=== PATIENT | male | born 1980 | race African-American/Black ===

== ENCOUNTER 2017-02-05 03:42 | Inpatient (IN) | payer OTHER ==
[~2017-02-05] VITALS: Ht 190.5 cm; Wt 113.9 kg
[2017-02-05] VITALS (11 sets, daily range): BP systolic 121–212; BP diastolic 67–132
--- NOTE | ~2017-02-05 | EKG ---
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 : 1980 Requested By: Titi Marques Order Number: [id number] MD: Mayur Conte Measurements Intervals Maryneal Rate: 89 P: 38 AL: 165 QRS: -20 QRSD: 87 T: 59 QT: 367 QTc: 447 Interpretive Statements Sinus rhythm Left atrial enlargement Left ventricular hypertrophy Compared to ECG 05/12/2009 23:43:40 Nonspecific T wave abnormality now present Electronically Signed On 02-06-2017 9:46:34 [employer]UCK LE[employer]ING [employer]NAGER by Mayur Conte [email or web address] <ELECTRONICALLY SIGNED> By: Mayur Conte MD, [facility] 02/06/17 0946 06 1 Mayur Conte MD, [facility] /EPI
--- NOTE | ~2017-02-05 | O ---
[facility] [place] [address] OPERATIVE REPORT Name: KEITH SEGUNDO Room #: 439-P [facility] IN ..#: [id number] Admission: 02/05/17 Attend Phys: Shaun Downey DO Discharge: 02/08/17 Date of : 82 Report #: [id number] THIS REPORT FOR: //name// CC: Shaun MIR DATE OF SERVICE: 02/08/2017 PROCEDURE: Diagnostic bronchoscopy. CLINICAL HISTORY: A 37-year-old -Colombian male with ashley hemoptysis. 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 POSTOPERATIVE DIAGNOSES: 1. Moderate mucosal erythema involving the left upper lobe, right lower lobe without obvious bleeding. 2. Normal right main stem bronchus, right upper lobe, right middle lobe, right lower lobe and the right upper lobe. DESCRIPTION OF PROCEDURE: Following obtained consent and risks and benefits have been explained to the patient, which include infection, bleeding, pneumothorax, the procedure was performed. The patient was given total of 4 mg of Versed along with fentanyl 50 mcg IV. He was also given aerosolized lidocaine at 4%, 2% and 1% to the upper airways. Through the left nare, a flexible fiberoptic bronchoscope was then introduced without difficulty. The epiglottis was normal. Vocal cords were normal. Trachea was normal. Mally was normal. Right main stem bronchus, right upper lobe, right middle lobe and right lower lobe was unremarkable. Left main stem bronchus was grossly unremarkable other than mild distal erythema. At the left upper lobe and left lower lobe, there appears to be moderate edema and erythema. No active bleeding was noted. The bleeding did occur following bronchoscopic trauma when the patient started to cough. The procedure was then aborted. Otherwise, the patient tolerated the procedure well other than his blood pressure, which was up to about 100, which was elevated at around 160/100. The patient did not receive his p.o. antihypertensive medications. Blood loss was approximately 10-20 mL. Otherwise, vital signs and saturation were within normal range. No bronchoscopic specimen was sent for diagnostic testing. [address] [address] OPERATIVE REPORT Name: KEITH SEGUNDO Room #: 439-P [facility] IN ..#: [id number] Admission: 02/05/17 Attend Phys: Shaun Downey DO Discharge: 02/08/17 Date of : 82 Report #: [id number] RECOMMENDATIONS: In the future, if the patient needs another diagnostic bronchoscopy, absolute control of the cough or general anesthesia may be a better option in avoiding bronchoscopic trauma. <ELECTRONICALLY SIGNED> By: Dewayne Gonzalez MD 02/09/17 1613 1716 1755 Dewayne Gonzalez MD /nt
--- NOTE | ~2017-02-05 | HC ---
[facility] [place] [address] CONSULTATION Name: KEITH SEGUNOD Room #: 439-P [facility] IN ..#: [id number] Admission: 02/05/17 Attend Phys: Shaun Downey DO Discharge: Date of : 82 Report #: [id number] THIS REPORT FOR: //name// CC: Shaun DIANA PCP REFERRING PHYSICIAN: Dr. Shaun Downey. REASON FOR REFERRAL: Hemoptysis. HISTORY OF PRESENT ILLNESS: The patient is a 37-year-old -[place] male who presents to the emergency room with hemoptysis. A pulmonary consultation was requested. The patient has an extensive pulmonary history. In 2009, he was diagnosed with histoplasmosis involving his left lower lung field. He developed subsequent complications including granulomatous disease and hemoptysis. He then underwent coil embolization on 2 occasions to control bleeding. He was seen at [facility]. He was also seen at [facility] in [place], [place] in 2010, who had confirmed that he likely had histoplasmosis. He was also treated with intravenous itraconazole around 2010. He does not recall for how long, but he remembers being on prolonged course. He was doing fairly well until about 5 years ago when he developed spontaneous hemoptysis. At that time, his hemoptysis was mild. It resolved spontaneously. He was doing fairly well until last evening he had a sudden onset of cough along with moderate hemoptysis. For that reason, he presented to the emergency room. Recently, he has had complaints of chills. Denies any recent febrile illness. Denies any nausea, vomiting, diarrhea. The patient does smoke about a pack a day for most of his life. Denies any drug use. 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 The car was parked in an apartment lot and had bird droppings. He believes that that was the source for his histoplasmosis. PAST MEDICAL HISTORY: Otherwise, unremarkable other than mentioned above. PAST SURGICAL HISTORY: Negative other than coil embolization times 2 around 2009 and 2010. ALLERGIES: None. HOME MEDICATIONS: None. [facility] [address] [place] [address] CONSULTATION Name: RATNAKEITH Roxanne Room #: 439-P [facility] IN ..#: [id number] Admission: 02/05/17 Attend Phys: Shaun Downey DO Discharge: Date of : 82 Report #: [id number] FAMILY HISTORY: Father , cause unknown. Mother alive. SOCIAL HISTORY: He is single, has three children. He smokes about a pack a day. Denies any illicit drug use. REVIEW OF SYSTEMS: As mentioned above, otherwise 10-point system review negative. PHYSICAL EXAMINATION: GENERAL: He is awake, alert, in mild distress. He is coughing during this examination. He is actively coughing up bright red blood. VITAL SIGNS: Temperature is 98.9 degrees Fahrenheit. Pulse is 91. Respiratory rate is 20. Blood pressure was as high as 210/132 mmHg, currently it is 170/120 mmHg. Saturation is 98%. HEENT: Normocephalic, atraumatic. NECK: Supple, without lymphadenopathy or thyromegaly. CHEST: Breath sounds are fair with few scattered crackles with rales in the left lung field. No wheezes. CARDIOVASCULAR: Normal S1, S2. There is no murmur or gallop. There is no JVD. There is no carotid bruit. Pulses are 2+/4+ bilaterally. ABDOMEN: Soft, nontender, no organomegaly or masses felt. GENITOURINARY: Deferred. RECTAL: Deferred. EXTREMITIES: There is no edema, cyanosis or clubbing. LABORATORY DATA: Chest x-ray shows mild volume loss, infiltrate seen in the left lower lung field. CT chest angiogram was now reviewed. Previously placed coil noted in the left hilum, left upper lobe. Fibrosis and mild bronchiectasis noted. The left pulmonary artery appears to be truncated right after the bifurcation from the main pulmonary artery. Prominent, soft tissue nodules and densities are noted in the superior and anterior mediastinum consistent with lymphadenopathy, extensive interstitial ground glass opacity seen in the left lung field. Electrolytes are normal, creatinine is normal. WBC 10,400, hemoglobin is 14.7, platelets are normal. IMPRESSION: 1. Ashley hemoptysis in this 37-year-old -[place] male with past history of pulmonary histoplasmosis. He has had past history of hemoptysis related to granulomatous disease. He has since undergone coil embolization therapy in 2009 and 2010. The patient has also been treated with IV itraconazole in the past. The cause of the patient's hemoptysis is likely related to granulomatous lung disease. In my review of the chest CT angiogram, there appears to be defect involving the left upper lobe airway where extensive calcified granulation is noted. Other considerations include infectious process including recurrent [facility] [address] [place] [address] CONSULTATION Name: KEITH SEGUNDO Room #: 439-P ADM IN M.R.#: [id number] Admission: 02/05/17 Attend Phys: Shaun Downey DO Discharge: Date of : 82 Report #: [id number] histoplasmosis, bacterial infections, etc. 2. Tobacco abuse without prior history of chronic obstructive pulmonary disease. RECOMMENDATION AND DISCUSSION: I have reviewed the chest CT with radiology. Discussed the findings with the patient. As mentioned above, my review of the chest CT suggests possible left upper lobe airway defect related to granulomatous disease. The patient has ashley hemoptysis at this time, which appears to be moderate. I believe the patient will benefit from rigid bronchoscopy for further evaluation. The patient may need thoracic surgical consultation. Because of the severity and complexity of the patient's pulmonary problem, I believe the patient may benefit from surgery referral. Discussed the findings with the patient. The patient is agreeable. We will try to make arrangements. Thank you for this consultation. <ELECTRONICALLY SIGNED> By: Dewayne Gonzalez MD 02/06/17 1438 1420 2103 Dewayne Gonzalez MD /nt
[~2017-02-05 03:42] MED LIST: ADVIL200 M2 PO; CHERATUSSIN DA480 ML PO; LEVAQUIN 500 M500 MG PO; TYLENOL P.M. E1 EAC3 PO
[2017-02-05 06:27] LABS: ABSOLUTE NEUTROPHILS 6.5 thou/uL (1.4-8.2); BASOPHILS 1.1 % (0.0-2.0); EOSINOPHILS 2.3 % (0.0-3.0); HEMATOCRIT 45.2 % (42.0-52.0); HEMOGLOBIN 14.7 gm/dL (14.0-18.0); LYMPHOCYTES 26.6 % (24.0-44.0); MANUAL DIFF NO; MCH 24.7 pg (26.0-34.0); MCHC 32.6 g/dL (28.0-37.0); MCV 75.8 fL (80.0-100.0); MONOCYTES 7.7 % (1.0-8.0); PLATELET COUNT 227 thou/uL (150-400); POLYS 62.3 % (36.0-66.0); RBC 5.96 mil/uL (4.50-6.00); RDW 16.3 % (10.5-14.5); WBC 10.4 thou/uL (4.0-11.0)
[2017-02-05 06:33] LABS: CALCIUM 9.1 mg/dL (8.5-10.1); CREATININE 0.9 mg/dL (0.7-1.3); POTASSIUM 5.3 mmol/L (3.5-5.1)
[2017-02-05 07:29] LABS: PROTIME 10.7 Seconds (9.3-11.4)
[2017-02-06 04:35] VITALS: BP 141/87
[2017-02-06 06:07] LABS: BASOPHILS 0.3 % (0.0-2.0); EOSINOPHILS 1.1 % (0.0-3.0); HEMATOCRIT 38.2 % (42.0-52.0); LYMPHOCYTES 20.8 % (24.0-44.0); MCH 24.5 pg (26.0-34.0); MCHC 32.6 g/dL (28.0-37.0); MCV 75.2 fL (80.0-100.0); MONOCYTES 9.2 % (1.0-8.0); PLATELET COUNT 205 thou/uL (150-400); POLYS 68.6 % (36.0-66.0); RBC 5.08 mil/uL (4.50-6.00); RDW 16.6 % (10.5-14.5); WBC 10.2 thou/uL (4.0-11.0)
[2017-02-06 06:18] LABS: CALCIUM 8.7 mg/dL (8.5-10.1); CREATININE 1.1 mg/dL (0.7-1.3); HEMOGLOBIN 12.4 gm/dL (14.0-18.0); MANUAL DIFF NO
[2017-02-06 06:26] LABS: POTASSIUM 3.8 mmol/L (3.5-5.1)
[2017-02-06 16:00] VITALS: BP 150/93
[2017-02-06 20:19] VITALS: BP 146/91
[2017-02-06 23:34] VITALS: BP 147/101
[2017-02-07] VITALS (14 sets, daily range): BP systolic 122–146; BP diastolic 72–95
[2017-02-07 06:22] LABS: HEMATOCRIT 36.3 % (42.0-52.0); HEMOGLOBIN 11.7 gm/dL (14.0-18.0); MCH 24.6 pg (26.0-34.0); MCHC 32.4 g/dL (28.0-37.0); MCV 76.1 fL (80.0-100.0); RBC 4.76 mil/uL (4.50-6.00); RDW 16.6 % (10.5-14.5); WBC 8.7 thou/uL (4.0-11.0)
[2017-02-07 06:35] LABS: CALCIUM 8.8 mg/dL (8.5-10.1)
[2017-02-07 06:55] LABS: INR 1.1; PROTIME 11.3 Seconds (9.3-11.4)
[2017-02-08 05:57] LABS: ABSOLUTE NEUTROPHILS 6.4 thou/uL (1.4-8.2); BASOPHILS 0.4 % (0.0-2.0); EOSINOPHILS 2.2 % (0.0-3.0); HEMATOCRIT 36.3 % (42.0-52.0); HEMOGLOBIN 11.6 gm/dL (14.0-18.0); LYMPHOCYTES 19.1 % (24.0-44.0); MCH 24.6 pg (26.0-34.0); MCV 76.8 fL (80.0-100.0); MONOCYTES 9.2 % (1.0-8.0); PLATELET COUNT 207 thou/uL (150-400); POLYS 69.1 % (36.0-66.0); RBC 4.72 mil/uL (4.50-6.00); RDW 16.4 % (10.5-14.5); WBC 9.3 thou/uL (4.0-11.0)
[2017-02-08 06:01] LABS: MANUAL DIFF NO
[2017-02-08 06:05] LABS: CALCIUM 8.7 mg/dL (8.5-10.1); POTASSIUM 3.9 mmol/L (3.5-5.1)
[2017-02-08 09:44] VITALS: BP 129/95
[2017-02-08] MEDS ORDERED: AMLODIPINE BESYL5 MG PO (14:12)
[2017-02-08] MEDS ORDERED: CARVEDILOL3.125 MG PO (14:13)
[2017-02-08] MEDS ORDERED: CODEINE SULFATE30 MG PO (14:13)
[2017-02-08 14:25] VITALS: BP 129/95
== END 2017-02-08 15:02 | disposition home or self-care (01) | DRG 204 ==
LOC: ER 03:42 → 4S 06:54 → EROBS 06:54 → 4S 08:36
PROVIDERS: Emergency Medicine; Family Medicine; Internal Medicine Pulmonary Disease; Radiology Diagnostic Radiology
PROC: B2101ZZ Fluoroscopy of Single Coronary Artery using Low Osmolar Contrast (ICD-10-PCS; principal; 2017-02-07)
PROC: B31N1ZZ Fluoroscopy of Other Upper Arteries using Low Osmolar Contrast (ICD-10-PCS; principal; 2017-02-07)
DX: R04.2 Hemoptysis (principal); B39.9 Histoplasmosis, unspecified; I10 Essential (primary) hypertension; F12.90 Cannabis use, unspecified, uncomplicated; Z79.899 Other long term (current) drug therapy; Z87.891 Personal history of nicotine dependence
CPT/HCPCS: 10100